=== PATIENT | female | born 1940 | race Caucasian/White ===

== ENCOUNTER 2016-05-25 12:34 | Emergency (ER) | payer BC, OTHER ==
[~2016-05-25] VITALS: Ht 162.6 cm; Wt 62.0 kg
[2016-05-25 12:38] VITALS: Ht 162.6 cm; Wt 62.0 kg
[2016-05-25] MEDS ORDERED: TETRACAINE 0.5% 15 ML OPH LEFT EYE ONE (14:30)
[2016-05-25] MEDS ORDERED: FLUORESCEIN STRIP LEFT EYE ONE (14:30)
[2016-05-25] MEDS ORDERED: AMO500 PO (14:58)
[2016-05-25] MEDS ORDERED: IBUP400T22 PO (14:58)
[2016-05-25] MEDS ORDERED: GENT5DRO28 LEFT EYE (14:58)
--- NOTE | 2016-05-25 15:01 | ERD ---
ER Documentation Chief Complaint Date/Time DATE: 05/25/16 TIME: 14:59 Chief Complaint LT EYE AND LT EAR PAIN X 1 MONTH HPI 9-year-old female complains of left eye discomfort over the last week and left ear discomfort over the last month. She denies congestion, fevers, visual field deficits, visual changes. She does have some tearing feel like there is something stuck in her eye. She denies any inciting events. She denies any shortness of breath or chest pain. She denies contact lens use ROS All systems reviewed and are negative except as per history of present illness. Medications Home Meds Active Scripts Ibuprofen* (Motrin*) 400 Mg Tab, 400 MG PO Q6H Y for PAIN, #14 TAB Prov:MARCELINO MAHMOOD MD 05/25/16 Amoxicillin* (Amoxicillin*) 500 Mg Cap, 500 MG PO TID for 7 Days, #20 CAP Prov:MARCELINO MAHMOOD MD 05/25/16 Gentamicin Sulfate* (Gentamicin Sulfate* Ophth) 0.3% - 5 Ml Drops, 1 DROP LEFT EYE Q4 for 7 Days, EA Prov:MARCELINO MAHMOOD MD 05/25/16 Physical Exam Vitals Vital Signs Date Time Temp Pulse Resp B/P Pulse Ox O2 Delivery O2 Flow Rate FiO2 05/25/16 12:38 98.1 66 18 184/88 98 Physical Exam Const: [] Alert, [id number] per Head: Atraumatic Eyes: There is some slight left scleral redness. Eyes are PERRLA and extraocular movements intact. There is approximately 0.1 cm punctate fluorescein uptake at 9:00 on the left cornea. Intraocular pressure is 18 in the affected eye. Visual acuity shows no acute abnormalities per ENT: Normal External Ears, Nose and Mouth. Left TM is opaque with decreased light reflex Neck: Full range of motion..~ No meningismus. Resp: Clear to auscultation bilaterally Cardio: Regular rate and rhythm, no murmurs Abd: Soft, non tender, non distended. Normal bowel sounds Skin: No petechiae or rashes Back: No midline or flank tenderness Ext: No cyanosis, or edema Neur: Awake and alert Psych: Normal Mood and Affect Results 24 hrs Current Medications Medications (Trade) Dose Ordered Sig/Sharron Route PRN Reason Start Time Stop Time Status Last Admin Dose Admin Tetracaine HCl (Tetracaine 0.5% Oph) 1 drop ONCE ONCE LEFT EYE 05/25/16 14:30 05/25/16 14:31 DC Fluorescein Sodium (Otvcd-Q-Eodyl) 1 strip ONCE ONCE LEFT EYE 05/25/16 14:30 05/25/16 14:31 DC Procedures/MDM Patient presents with left eye pain over the last 1-2 weeks with signs of a small corneal ulcer. There is no evidence of foreign body, acute angle glaucoma , hypopyon, threats to vision or signs or symptoms to suggest retinal artery ischemia, optic neuritis. She will be treated with amoxicillin for signs of otitis media and gentamicin ophthalmic solution for the small corneal ulcer. Patient is referred to local ophthalmology for further evaluation this week. She should otherwise return to the ER for new or worsening symptoms. The patient was stable with no new complaints during the ER course. Clinically, there is no current evidence to suggest meningitis, sepsis, acute abdomen, pneumonia, acute coronary syndrome, pulmonary embolism, or any other emergent condition appearing to require further evaluation or hospitalization. The patient should certainly return for any new or worsening symptoms per the aftercare instructions. They should otherwise follow-up with her primary care doctor for reevaluation this week. Departure Diagnosis: Primary Impression: Ear pain, left Additional Impression: Corneal ulcer Laterality: left Qualified Code: H16.002 - Corneal ulcer, left Condition: Stable Patient Instructions: Corneal Ulcer, Earache W/O Infection (Adult) Referrals: [facility] Hours: Mon - Fri 9:00 AM - 5:00 PM Additional Instructions: Va al calle doctor/ specialista para mas evaluacon en el proximo semana. posiblemente necesita autorizado de calle doctor primario para specialista. Regresa para fiebre, o mas o nueva simptomas. MARCELINO MAHMOOD MD May 25, 2016 15:01
== END 2016-05-25 16:04 | disposition home or self-care (01) ==
LOC: FTE 12:34
DX: H92.02 Otalgia, left ear (principal); H16.002 Unspecified corneal ulcer, left eye
CPT/HCPCS: Z7502; Z7610; 99284